=== PATIENT | female | born 1985 | race Caucasian/White ===

== ENCOUNTER → 2024-10-18 | Outpatient (CLI) | payer BC ==
[2024-10-18 13:59] VITALS: BP 163/99; PULSE 89; RESP 12; TEMP 98.2
--- NOTE | 2024-10-18 14:23 | P.SLEEP ---
History of Present Illness DATE: 10/18/2024 CONSULTATION/NEW PATIENT EVALUATION HISTORY OF PRESENT ILLNESS/SLEEP-WAKE EVALUATION: 39-year-old lady had been e valuated in the sleep center for obstructive sleep apnea hypopnea syndrome. Patient has history of obstructive sleep apnea diagnosed about 10 years ago, she was on treatment with BiPAP, BiPAP unit was broken and she stopped treatment. SLEEP SCHEDULE: Usually sleep schedule from 11 PM to 6:30 AM on weekdays and from midnight until 8 AM and. FALLING ASLEEP: No problems with falling asleep. DURING SLEEP: Patient has loud snoring and episodes of stop breathing during the sleep. No history of hypnogogical hallucinations, sleep paralysis, or cataplexy. DURING THE DAY/WAKE STATE: Patient feels sleepiness during the day. [place] sleepiness scale is 7. Usually patient does not take naps. PAST MEDICAL HISTORY: Bipolar 2, PTSD panic disorder kind of nightmares. PAST SURGICAL HISTORY: Gastric sleeve. MEDICATIONS: Please. SOCIAL HISTORY: Please see below. FAMILY HISTORY: Please see below. REVIEW OF SYSTEMS: Loud snoring, episodes of stop breathing during sleep. No fevers. No double vision. No recent chest pain. No shortness of breath. No abdominal pain. No bleeding episodes. No blood in urine. No seizure episodes. PHYSICAL EXAMINATION: GENERAL: A pleasant patient without any distress. VITAL SIGNS: Please see below, weight 478 pounds, BMI 78.8. HEENT: PERRLA, EOMI. Evaluation of oropharynx showed tongue protrudes midline, low position of soft palate Mallampati 4. NECK: Supple. No JVD. Thyroid is not palpable. 18-1/4 inches in circumference. LUNGS: Clear to percussion and to auscultation. Good air exchange. No wheezing or rhonchi. HEART: S1, S2 regular. No murmurs, gallops or rubs. ABDOMEN: Soft and nontender. Bowel sounds are present. No organomegaly appreciated. EXTREMITIES: No clubbing or cyanosis. NUMERICAL ANALYSIS GROUP MANAGER: Awake, alert, and oriented x3. Cranial nerves 2 to 7 intact. There is no fasciculation or atrophy noted. No focal deficits observed. ASSESSMENT: 1. Loud snoring, episodes of stop breathing during the sleep, extremely low position of soft palate Mallampati 4, wide neck 18-1/4 inches in circumference, history of obstructive sleep apnea before. Obstructive sleep apnea hypopnea syndrome. 2. Morbid obesity, BMI 78.8. 3. Bipolar 2. 4. PTSD. 5 panic disorder. 6 . History of nightmares. 7. Status post gastric sleeve. PLAN: 1. Polysomnography for evaluation of patient's breathing during sleep. 2. Following plan after reading sleep study. 3. Preferable position during sleep on the side. 4. No driving if patient feels any sleepiness. Patient is aware of civil and criminal liability for unsafe driving. 5. Sleep hygiene with regular sleep time for at least 7.5-8 hours. 6. Watching and losing weight. Thank you very much for referring this patient for consultation. Sincerely, Fortino Nguyen MD, PhD, FAASM. Diplomat of [place] [employer], Sleep Medicine Board by [employer] Advisor of [facility] [place] cc: Nickie Jackson DO Past Medical History Past Medical History: Asthma, Sleep Apnea/CPAP/BIPAP, Thyroid Disorder Additional Past Medical History / Comment(s): sinus headahes, History of Any Multi-Drug Resistant Organisms: None Reported Additional Past Surgical History / Comment(s): gastric sleeve Past Anesthesia/Blood Transfusion Reactions: No Reported Reaction Past Psychological History: Anxiety, Bipolar, Depression, PTSD Smoking Status: Current every day smoker Past Alcohol Use History: None Reported Past Drug Use History: None Reported Medications and Allergies Home Medications Medication Instructions Recorded Confirmed Type Benztropine Mesylate [Cogentin] 1 mg PO DAILY 10/18/24 10/18/24 History Gabapentin [Neurontin] 300 mg PO TID 10/18/24 10/18/24 History OLANZapine 20 mg PO DAILY 10/18/24 10/18/24 History PARoxetine HCL 30 mg PO DAILY 10/18/24 10/18/24 History Prazosin HCl [Minipress] 2 mg PO DAILY 10/18/24 10/18/24 History lamoTRIgine [LaMICtal] 100 mg PO BID 10/18/24 10/18/24 History Allergies Allergy/AdvReac Type Severity Reaction Status Date / Time Penicillins AdvReac Rash/Hives Unverified 10/18/24 13:46 Sulfa (Sulfonamide AdvReac Rash/Hives Unverified 10/18/24 13:46 Antibiotics) Physical Exam Vitals: Vital Signs Temp Pulse Resp BP Pulse Ox 10/18/24 13:56 98.2 F 89 12 163/99 97 Intake and Output 10/17/24 10/18/24 10/18/24 22:59 06:59 14:59 Other: Weight 212.281 kg Sleep Note - Sleep Data ESS Total: 7 - Sleep Note Sleep Note: Temperature: 98.2 F Pulse Rate: 89 Respiratory Rate: 12 Blood Pressure: 163/99 SpO2: 97 Height: 5 ft 4.25 in Weight: 212.281 kg BMI: Neck Circumference: 18.2
== END ==
LOC: 3 N SLEEP 13:12
PROVIDERS: ATTEND Internal Medicine
DX: G47.33 Obstructive sleep apnea (adult) (pediatric) (principal); E66.01 Morbid (severe) obesity due to excess calories; F31.9 Bipolar disorder, unspecified; F43.10 Post-traumatic stress disorder, unspecified; F41.0 Panic disorder [episodic paroxysmal anxiety]; Z68.45 Body mass index [BMI] 70 or greater, adult; Z98.84 Bariatric surgery status; Z88.0 Allergy status to penicillin; Z88.2 Allergy status to sulfonamides
CPT/HCPCS: 99211

== ENCOUNTER 2024-11-08 19:40 | Outpatient (CLI) | payer BC ==
--- NOTE | 2024-11-16 10:24 | P.PCN ---
Description of Procedure: POLYSOMNOGRAPHY REPORT PROCEDURE(S)/DATE(S): Polysomnography 11/08/2024 CLINICAL: Patient has been seen in the sleep center for evaluation of obstructive sleep apnea-hypopnea syndrome. Please see my consultation. Sleep study has been done for evaluation of patient breathing during the sleep. PROCEDURE: The standard montage for clinical polysomnography included the electroencephalogram, the electrooculogram, the mentalis surface electromyography and Lead II cardiography. The respiratory battery consisted of measurements of nasal/buccal air flow, pressure transducer measurements from nose, thoracic and/or abdominal effort and intercostal surface electromyography. Video monitoring has been done to check for any parasomnia events. Nocturnal oxyhemoglobin saturations were obtained by finger oximetry. Step-leiva titration with positive airway pressure was utilized to control the respiratory events, if necessary. RESULTS: During the diagnostic sleep study sleep efficiency was normal 92.0%. Latency to sleep onset was normal at 13.5 min. Sleep architecture showed stage NI was short 2.1%, Delta sleep was normal at 15.7%, REM sleep was normal 24.5%. Respiratory channel showed 0 obstructive apneas, 0 mixed apneas, 0 central apneas, 91 hypopneas with lowest oxygen level 67%. Total apnea hypopnea index was 14.1 following 4% oxygen desaturation for hypopneas and 14.7 following 3% oxygen desaturation for scoring hypopneas. Apnea hypopnea index and REM sleep extremely high 41.7. Heart rate was in the range between 65 and 81, average 74. EMG showed 0 periodic limb movements per hour. IMPRESSIONS: 1. Obstructive sleep apnea hypopnea syndrome mild borderline to moderate, extremely severe in REM sleep with severe oxygen desaturation to 67%. 2. No significant periodic limb movements have been documented. 3. PTSD 4. History of panic disorder 5. Bipolar 2. 6. Morbid obesity, BMI 78.8 Please see other impressions from consultation PLAN: 1. The patient will have PAP titration for correction of respiratory abnormalities during the sleep. 2. Losing weight program. 3. Sleep hygiene with regular time in bed for at least 7-1/2 hours. 4. No driving if feeling sleepiness. Thank you very much for allowing me to participate in the management of your patient. Sincerely, Fortino Nguyen MD, PhD, FAASM. Diplomat of [place] [employer], Sleep Medicine Board by [place] [employer] Category Planner of [facility] [place] cc: Nickie Jackson DO
== END 2024-11-09 06:26 | disposition home or self-care (01) ==
LOC: 3 N SLEEP 19:40
PROVIDERS: ATTEND Internal Medicine
DX: G47.33 Obstructive sleep apnea (adult) (pediatric) (principal); E66.01 Morbid (severe) obesity due to excess calories; F31.81 Bipolar II disorder; F43.10 Post-traumatic stress disorder, unspecified; F41.0 Panic disorder [episodic paroxysmal anxiety]; Z88.0 Allergy status to penicillin; Z88.2 Allergy status to sulfonamides; Z68.45 Body mass index [BMI] 70 or greater, adult
CPT/HCPCS: 95810

== ENCOUNTER 2024-12-20 19:48 | Outpatient (CLI) | payer BC ==
--- NOTE | 2024-12-21 14:29 | P.PCN ---
Description of Procedure: CLINICAL: Titration with positive air pressure has been done for correction of respiratory abnormalities during sleep. DESCRIPTION OF PROCEDURE: The standard montage for clinical polysomnography included the electroencephalogram, the electrocardiogram, the mentalis surface electromyography and Lead II cardiography. The respiratory battery consisted of measurements of nasal /buccal air flow, pressure transducer measurements from the nose, thoracic and /or abdominal effort and intercostal surface electromyography. Video monitoring has been done to check for any parasomnia events. Nocturnal oxyhemoglobin saturations were obtained by finger oximetry. Step-leiva titration with positive airway pressure was utilized to control respiratory events. Raw data of sleep recording has been reviewed and is adequate. RESULTS: Sleep efficiency was normal 96.2%. Latency to sleep onset was slightly short 7.5 minutes.]. Sleep architecture showed stage N1 was short 3.3%, Delta sleep was normal 14.7%, REM sleep was normal 24.4%. Heart rate was minimum 64 BPM, maximum 76 BPM, average 69 BPM. EMG showed 0 periodic limb movements per hour. PAP titration have been done with CPAP up to the pressure 12 cm H2O. Patient was switched on BiPAP with a pressure 14-15 over 10 cm of water, because still had some oxygen desaturations in rem sleep on CPAP. The best results were at the pressure 15/10 cm H2O. Apnea hypopnea index reduced to 4.1, patient was at that pressure in non-REM sleep for 31.5 minutes and in rem sleep for 27.7 minutes. IMPRESSION: 1. Obstructive sleep apnea hypopnea syndrome on controle with BPAP treatment. 2. No significant periodic limb movements have been documented. Please see other impressions from consultation. PLAN: 1. The patient will have treatment with positive air pressure equipment with the level of pressure auto BiPAP with maximal inspiratory pressure 15 and minimal expiratory pressure 7, pressure support 4 cm H2O and should use it every night for the whole night. 2. Watching and losing weight. 3. Sleep hygiene with regular time in bed for at least 8 hours. 4. No driving if feeling any sleepiness. 5. I will see the patient for follow up visit to explain the results of the test, recommendations, check compliance with treatment and make any necessary adjustment related to mask fitting, pressure and humidification. Thank you very much for allowing me to participate in the management of your patient. Sincerely, Fortino Nguyen MD, PhD, FAASM Diplomat of [employer] [employer] Sleep Medicine Board of [place] [employer] Wall Cleaner of [facility] [place] cc: Nickie Jackson DO
== END 2024-12-21 06:15 | disposition home or self-care (01) ==
LOC: 3 N SLEEP 19:48
PROVIDERS: ATTEND Internal Medicine
DX: G47.33 Obstructive sleep apnea (adult) (pediatric) (principal); Z99.89 Dependence on other enabling machines and devices; Z88.0 Allergy status to penicillin; Z88.2 Allergy status to sulfonamides
CPT/HCPCS: 95811